=== PATIENT | female | born 1980 | race American Indian/Alaskan Native ===

== ENCOUNTER 2019-08-20 10:51 | Emergency (ER) | payer SELFPAY ==
--- NOTE | 2019-08-20 12:00 | Emergency Department Report ---
HPI - General Chief Complaint: Dental/Oral Time Seen by Provider: 08/20/19 11:30 - HPI HPI: Room 2 The patient is a 39-year-old female present with a chief complaint of left facial pain and swelling. Patient states for 1 week she has had pain to the le ft face and swelling in the regions of the left upper teeth. Patient denies any recent trauma. The patient states the pain was severe to the point where between 04: 3 0 this morning and arriving to the ED the patient had taken a total of 4 Tylenol 500 mg pills, 2-3 Percocets (5/325) and a few over -the-counter nonsteroidal anti-inflammatories. Patient denies suicidal ideation. Patient denies recent trauma. ED Past Medical Hx - Past Medical History Previous Medical History?: Yes Hx Hypertension: Yes Hx Headaches / Migraines: Yes Additional medical history: chest pain - Surgical History Past Surgical History?: Yes Hx Breast Surgery: Yes (reduction) Additional Surgical History: x 2 - Family History Family history: no significant - Social History Smoking Status: Never Smoker Substance Use Type: None (Denies illicit drug use), Alcohol (Occasional) - Medications Home Medications: Home Medications Medication Instructions Recorded Confirmed Last Taken Type Amoxicillin [Amoxicillin TAB] 875 mg PO BID #20 tablet 08/20/19 Unknown Rx Ibuprofen [Motrin 800 MG tab] 800 mg PO Q8HR PRN #20 tablet 08/20/19 Unknown Rx oxyCODONE /ACETAMINOPHEN [Percocet 1 - 2 tab PO Q6HR PRN #10 tablet 08/20/19 Unknown Rx 5/325] ED Review of Systems ROS: Stated complaint: TOOTHACHE/HEADACHE Other details as noted in HPI Constitutional: no symptoms reported Eyes: denies: eye pain ENT: dental pain Respiratory: no symptoms reported Cardiovascular: denies: chest pain Endocrine: no symptoms reported Gastrointestinal: denies: vomiting Neurological: headache Physical Exam - Physical Exam Vital Signs: Vital Signs 08/20/19 11:13 Temperature 98.5 F Pulse Rate 79 Respiratory 18 Rate Blood Pressure 109/69 O2 Sat by Pulse 99 Oximetry Physical Exam: GENERAL: The patient is well-developed well-nourished female lying on stretcher not appearing to be in acute distress. [] HEENT: Normocephalic. Atraumatic. Extraocular motions are intact. Patient has moist mucous membranes. No obvious dental caries visualized. Gingiva in the region of tooth #15 tender to palpation, but no fluctuance seen NECK: Supple. Trachea midline CHEST/LUNGS: Clear to auscultation. There is no respiratory distress noted. HEART/CARDIOVASCULAR: Regular. There is no tachycardia. There is no gallop rub or murmur. ABDOMEN: Abdomen is soft, nontender. Patient has normal bowel sounds. There is no abdominal distention. SKIN: There is no rash. There is no edema. There is no diaphoresis. NEURO: The patient is awake, alert, and oriented. The patient is cooperative. The patient has no focal neurologic deficits. The patient has normal speech. Cranial nerves II through XII grossly intact, no drift MUSCULOSKELETAL: There is no evidence of acute injury. ED Course Vital Signs 08/20/19 11:13 Temperature 98.5 F Pulse Rate 79 Respiratory 18 Rate Blood Pressure 109/69 O2 Sat by Pulse 99 Oximetry - Consultations Consultation #1: 08/20/19 13:34 Case discussed with poison control ([place])-patient may be cleared from acetaminophen toxicity standpoint ED Medical Decision Making - Lab Data Result diagrams: 08/20/19 11:26 08/20/19 11:26 - EKG Data -: EKG Interpreted by Mo EKG shows normal: sinus rhythm Rate: normal - EKG Data When compared to previous EKG there are: previous EKG unavailable Interpretation: nonspecific ST-T wave escobar (T wave inversion in lead III) - Radiology Data Radiology results: report reviewed (CT head, CT face), image reviewed (CT head, CT facial bone) [facility] [address] [place] [address] Cat Scan Report Signed Patient: RAJAN CARLTON MR#: [id number] : 1980 Acct:[id number] Age/Sex: 39 / F ADM Date: 08/20/19 Loc: ED Attending Dr: Ordering Physician: GISELA CALZADA MD Date of Service: 08/20/19 Procedure(s): CT head/brain wo con Accession Number(s): [id number] cc: GISELA CALZADA MD NONENHANCED CT SCAN OF THE HEAD: INDICATION / CLINICAL INFORMATION: 39 years Female; Headache, left facial swelling TECHNIQUE: Routine CT head without contrast. All CT scans at this location are performed using CT dose reduction for ALARA by means of automated exposure control. COMPARISON: None. FINDINGS: BRAIN / INTRACRANIAL CONTENTS: No acute hemorrhage, mass effect, midline shift, hydrocephalus, or acute, large territorial infarct. No chronic infarct or focal atrophy. Normal brain volume and ventricular/sulcal size for age. No significant white matter abnormality. CRANIOCERVICAL JUNCTION: No significant abnormality. ORBITS: No significant abnormality of visualized orbits. SINUSES / MASTOIDS: No significant abnormality of the visualized paranasal sinuses or mastoid air cells. ADDITIONAL FINDINGS: None. IMPRESSION: No acute parenchymal lesion in the brain Signer Name: Johnathon Alonso MD Signed: 08/20/2019 1:47 PM Workstation Name: [id number] Transcribed By: BS Dictated By: Johnathon Aguero MD Electronically Authenticated By: Johnathon Aguero MD Signed Date/Time: 08/20/19 1347 DD/ 1340 TD/TT: [place] [address] Cat Scan Report Signed Patient: RAJAN CARLTON MR#: [id number] : 1980 Acct:[id number] Age/Sex: 39 / F ADM Date: 08/20/19 Loc: ED Attendin g Dr: Ordering Physician: GISELA CALZADA MD Date of Service: 08/20/19 Procedure(s): CT facial bones wo con Accession Number(s): [id number] cc: GISELA CALZADA MD CT FACE HISTORY: Left facial swelling COMPARISON: None. TECHNIQUE: Axial images of the face were obtained. Coronal and sagittal reformats were gen erated.All CT scans at this location are performed using CT dose reduction for ALARA by means of automated exposure control CONTRAST: None. FINDINGS: Facial bones: No fracture or other significant abnormality. Paranasal sinuses: Clear. Orbits: No significant abnormality. Additional findings: Soft tissue is in the facial region appear normal. They are symmetric. I do not see fatty stranding. Platysma is normal. No CT findings to suggest inflammatory changes. IMPRESSION: 1. No significant abnormality. Signer Name: Johnathon Alonso MD Signed: 08/20/2019 1:51 PM Workstation Name: [id number] Transcribed By: BS Dictated By: Johnathon Aguero MD Electronically Authenticated By: Estee Aguero MD Signed Date/Time: 08/20/19 1351 DD/ 1347 TD/TT: - Differential Diagnosis Dental infection Critical care attestation.: If time is entered above; I have spent that time in minutes in the direct care of this critically ill patient, excluding procedure time. ED Disposition Clinical Impression: Pain, dental Disposition: DC- TO HOME OR SELFCARE Is pt being admited?: No Does the pt Need Aspirin: No Condition: Stable Instructions: Toothache (ED) Additional Instructions: Return to the emergency department should you develop worsening symptoms, inability to tolerate food or liquids, high fever or any other concerns Prescriptions: Amoxicillin [Amoxicillin TAB] 875 mg PO BID #20 tablet Ibuprofen [Motrin 800 MG tab] 800 mg PO Q8HR PRN #20 tablet PRN Reason: Pain, Moderate (4-6) oxyCODONE /ACETAMINOPHEN [Percocet 5/325] 1 - 2 tab PO Q6HR PRN #10 tablet PRN Reason: Pain Referrals: [facility] [Outside] - 3-5 Days Time of Disposition: 15:25
[2019-08-20 12:47] LABS: INR 1.34 (0.87-1.13)
[2019-08-20 12:50] LABS: Hematocrit 35.3 % (30.3-42.9); Hemoglobin 11.7 gm/dl (10.1-14.3); Mean Corpuscular HGB Conc 33 % (30-34); Mean Corpuscular Volume 81 fl (79-97); Platelet Count 295 K/mm3 (140-440); Red Blood Count 4.36 M/mm3 (3.65-5.03); Red Cell Distribution Width 15.2 % (13.2-15.2)
[2019-08-20 12:55] LABS: Alanine Aminotransferase 8 units/L (7-56); Albumin 3.8 g/dL (3.9-5); BUN/Creatinine Ratio 13; Blood Urea Nitrogen 12 mg/dL (7-17); Calcium 9.5 mg/dL (8.4-10.2); Hemolysis Index 2
[2019-08-20 12:56] LABS: HCG Qualitative,Urine Negative (Negative)
[2019-08-20] MEDS ORDERED: fentaNYL 100 MCG/2 ML INJ IM ONE (13:36)
[2019-08-20] MEDS ORDERED: ONDANSETRON 4 MG/2 ML INJ IM ONE (13:36)
--- NOTE | 2019-08-20 13:51 | Cat Scan Report ---
NONENHANCED CT SCAN OF THE HEAD: INDICATION / CLINICAL INFORMATION: 39 years Female; Headache, left facial swelling TECHNIQUE: Routine CT head without contrast. All CT scans at this location are performed using CT dos e reduction for ALARA by means of automated exposure control. COMPARISON: None. FINDINGS: BRAIN / INTRACRANIAL CONTENTS: No acute hemorrhage, mass effect, midline shift, hydrocephalus, or ac [place], large territorial infarct. No chronic infarct or focal atrophy. Normal brain volume and ventricu lar/sulcal size for age. No significant white matter abnormality. CRANIOCERVICAL JUNCTION: No significant abnormality. ORBITS: No significant abnormality of visualized orbits. SINUSES / MASTOIDS: No significant abnormality of the visualized paranasal sinuses or mastoid air ashley ls. ADDITIONAL FINDINGS: None. IMPRESSION: No acute parenchymal lesion in the brain Signer Name: Johnathon Alonso MD Signed: 08/20/2019 1:47 PM Workstation Name: [id number]
--- NOTE | 2019-08-20 13:55 | Cat Scan Report ---
CT FACE HISTORY: Left facial swelling COMPARISON: None. TECHNIQUE: Axial images of the face were obtained. Coronal and sagittal reformats were generated.All CT scans at this location are performed using CT dose reduction for ALARA by means of automated expo sure control CONTRAST: None. FINDINGS: Facial bones: No fracture or other significant abnormality. Paranasal sinuses: Clear. Orbits: No significant abnormality. Additional findings: Soft tissue is in the facial region appear normal. They are symmetric. I do not see fatty stranding. Platysma is normal. No CT findings to suggest inflammatory changes. IMPRESSION: 1. No significant abnormality. Signer Name: Johnathon Alonso MD Signed: 08/20/2019 1:51 PM Workstation Name: [id number]
[2019-08-20 15:30] VITALS: BP 121/83
== END 2019-08-20 15:36 | disposition home or self-care (01) ==
LOC: ED 10:51
DX: K08.89 Other specified disorders of teeth and supporting structures (principal); R22.0 Localized swelling, mass and lump, head; I10 Essential (primary) hypertension; G43.909 Migraine, unspecified, not intractable, without status migrainosus; Z98.890 Other specified postprocedural states; Z79.1 Long term (current) use of non-steroidal anti-inflammatories (NSAID); Z79.2 Long term (current) use of antibiotics; Z79.899 Other long term (current) drug therapy
CPT/HCPCS: 36415; 70450; 70486; 80053; 81025; 85027; 85610; 93005; 93010; 96372; 99285; J2405; J3010; 80320; G0480